=== PATIENT | male | born 1945 | race Hispanic/Latino ===

== ENCOUNTER 2017-05-17 14:19 | Observation (INO) | payer BC ==
[2017-05-17] MEDS ORDERED: Glucagon Recombinant 1 mg Inj SC STA (15:24)
[2017-05-17] MEDS ORDERED: Sodium Chloride 0.9% 1,000 ML IV ONE (15:25)
[2017-05-17] MEDS ORDERED: Sodium Chloride 0.9% 1,000 ML ONE ×2 (15:30→15:44)
[2017-05-17] MEDS ORDERED: Glucagon Recombinant 1 mg Inj ONE (15:43)
[2017-05-17 15:45] LABS: BASO # 0.1 K/uL (0.0-0.2); BASO % 0.3 % (0.0-2.0); HEMATOCRIT 44.8 % (35.0-51.0); LYMPH % 4.4 % (20.0-40.0); MEAN CELL VOLUME 86.1 fL (80.0-94.0); MEAN CORPUSCULAR HEMOGLOBIN 28.2 pg (27.0-31.0); MEAN CORPUSCULAR HGB CONC 32.8 g/dL (33.0-37.0); MEAN PLATELET VOLUME 8.2 fL (7.2-11.7); MONO # 1.3 K/uL (0.0-0.8); MONO % 5.6 % (0.0-10.0); PLATELET COUNT 316 K/uL (130-400); RED CELL DISTRIBUTION WIDTH 13.9 % (11.5-14.5); WHITE BLOOD COUNT 22.7 K/uL (4.8-10.8)
[2017-05-17 15:54] LABS: CHLORIDE 104 mmol/L (98-107); SODIUM 140 mmol/L (132-148)
[2017-05-17 15:55] LABS: POTASSIUM 4.6 mmol/L (3.6-5.2)
[2017-05-17 15:56] LABS: BILIRUBIN,TOTAL 1.2 mg/dL (0.2-1.3); GFR AFRICAN-AMERICAN > 60
[2017-05-17 15:57] LABS: ALB/GLOB RATIO 1.6 (1.0-2.1); ALKALINE PHOSPHATASE 55 U/L (38-126); ALT/SGPT 37 U/L (21-72); AST/SGOT 35 U/L (17-59); BLOOD UREA NITROGEN 28 mg/dL (9-20); CALCIUM 9.3 mg/dl (8.6-10.4); CARBON DIOXIDE 19 mmol/L (22-30); GLUCOSE,RANDOM 245 mg/dL (75-110); TOTAL PROTEIN 8.9 g/dL (6.3-8.3)
[2017-05-17 16:00] LABS: INR 1.2
--- NOTE | 2017-05-17 16:32 | RAD ---
PROCEDURE: CHEST RADIOGRAPH, 1 VIEW HISTORY: SOB COMPARISON: 10/15/2016 FINDINGS: LUNGS: Abnormal opacity at right lung base. This is noted on earlier examination of 10/15/2016 though the morphology is not identical. Cannot rule out infiltrate. This may also represent pleural plaque or subsegmental atelectasis. PLEURA: No pneumothorax or pleural fluid seen. CARDIOVASCULAR: Normal. OSSEOUS STRUCTURES: No significant abnormalities. VISUALIZED UPPER ABDOMEN: Normal. OTHER FINDINGS: None. IMPRESSION: Opacity at right lung base common nonspecific. Cannot rule out pneumonia. Followup advised.
[2017-05-17] MEDS ORDERED: Iodixanol 320 MG/ML 200 ML BOTTLE IV ONE (17:18)
--- NOTE | 2017-05-17 17:31 | C.PDOC ---
History Of Present Illness 71y/o male presents to the ED for evaluation of epigastric discomfort after he swallowed a piece of chicken cutlet around 3 days ago. Patient has been unable to pass foods or fluids since the incident. Patient reports frequent episodes of vomiting with any liquids. Patient denies shortness of breath, chest pain. Time Seen by Provider: 05/17/17 15:21 Chief Complaint (Nursing): Foreign Body History Per: Patient History/Exam Limitations: no limitations Onset/Duration Of Symptoms: Days (3) Current Symptoms Are (Timing): Still Present Additional History Per: Patient Past Medical History Reviewed: Historical Data, Nursing Documentation, Vital Signs Vital Signs: Last Vital Signs Temp 97.7 F 05/17/17 14:32 Pulse 123 H 05/17/17 14:32 Resp 20 05/17/17 14:32 BP 143/86 05/17/17 14:32 Pulse Ox 94 L 05/17/17 18:32 - Medical History PMH: No Chronic Diseases Surgical History: No Surg Hx Family History: States: Unknown Family Hx - Social History Hx Alcohol Use: No Hx Substance Use: No - Immunization History Hx Tetanus Toxoid Vaccination: No Hx Influenza Vaccination: No Hx Pneumococcal Vaccination: No Review Of Systems Except As Marked, All Systems Reviewed And Found Negative. Cardiovascular: Negative for: Chest Pain Respiratory: Negative for: Shortness of Breath Gastrointestinal: Positive for: Vomiting, Abdominal Pain (epigastric ) Physical Exam - Physical Exam Appears: Non-toxic, No Acute Distress, Other (elderly male ) Skin: Normal Color, Warm, Dry Head: Atraumatic Eye(s): bilateral: Normal Inspection Oral Mucosa: Moist Throat: Other (+moist oropharynx) Neck: Normal ROM, Supple Chest: Symmetrical, No Deformity, No Tenderness Cardiovascular: Rhythm Regular, No Murmur Respiratory: Normal Breath Sounds, No Rales, No Rhonchi, No Wheezing Gastrointestinal/Abdominal: Soft, No Tenderness, No Guarding, No Rebound Back: Normal Inspection, No Vertebral Tenderness, No Paraspinal Tenderness Extremity: Normal ROM, Capillary Refill (less than 2 seconds ) Neurological/Psych: Oriented x3, Normal Speech, Normal Cognition Gait: Steady ED Course And Treatment - Laboratory Results Result Diagrams: 05/17/17 15:42 05/17/17 15:42 Lab Interpretation: Abnormal (+ leukocytosis, ? related to vomiting x 2 days, trop neg.) ECG: Interpreted By Me ECG Rhythm: Sinus Rhythm ECG Interpretation: Normal Interpretation Of ECG: Normal Sinus Rhythm of rate 82bpm. Rate From EC O2 Sat by Pulse Oximetry: 94 Pulse Ox Interpretation: Normal - Radiology CXR: Interpreted by Me CXR Interpretation: Yes: No Acute Disease, Other (chronic RLL changes) - CT Scan/US CT chest Other Rad Studies (CT/US): Interpreted By Me, Read By Radiologist, Radiology Report Reviewed CT/US Interpretation: IMPRESSION: 1. Fluid and debris distended esophagus. The appearance favors a distal food. impaction. Images of the gastroesophageal junction are degraded by artifact. . 2. Hepatic steatosis. . 3. Coarse linear densities at the right lung base suggest subsegmental. atelectasis. Possible mucus impacted distal bronchus. Images were attached to this report and are available at [email or web address] Progress Note: IVF's, glucogon without improvement. Reevaluation Time: 17:31 Reassessment Condition: Improved - Physician Consult Information Outcome Of Conversation: d/w Dr. Gabriela [facility]WL[facility] [employer]- in ED @ 1700, plan for upper endoscopy in AM. 1730: d/w Dr. Avinash [facility]WL[facility] [employer]- ok to Med Surg Medical Decision Making Medical Decision Making: impacted food bulus distal esophagus x 2-3 days. unimproved w glucagon IM/SQ NPO, Gentle hydration and glu control overnight, plan for upper endoscopy in AM Leukocytosis may be related to recent vomiting, otherwise no obvious source, defer abx Disposition Doctor Will See Patient In The: Hospital Counseled Patient/Family Regarding: Studies Performed, Diagnosis - Disposition Disposition: HOSPITALIZED Disposition Time: 17:33 Condition: GOOD - Clinical Impression Clinical Impression: Food impaction of esophagus - Scribe Statement The provider has reviewed the documentation as recorded by the Scribe (Kiya Bueno) Provider Attestation: All medical record entries made by the Scribe were at my direction and personally dictated by me. I have reviewed the chart and agree that the record accurately reflects my personal performance of the history, physical exam, medical decision making, and the department course for this patient. I have also personally directed, reviewed, and agree with the discharge instructions and disposition.
--- NOTE | 2017-05-17 17:58 | CT ---
EXAM: CT Chest With Intravenous Contrast CLINICAL HISTORY: 71 years old, male; Signs and symptoms; Mass, lump, or swelling in the chest; Additional info: ? Food impact vs distal esophageal mass TECHNIQUE: Axial computed tomography images of the chest with intravenous contrast. This CT exam was performed using one or more of the following dose reduction techniques: automated exposure control, adjustment of the mA and/or kV according to patient size, and/or use of iterative reconstruction technique. Coronal and sagittal reformatted images were created and reviewed. CONTRAST: 100 mL of visipaque administered intravenously. EXAM DATE/TIME: Exam ordered 05/17/2017 3:36 PM COMPARISON: No relevant prior studies available. FINDINGS: Lungs: Patchy linear opacities are noted in the posterior basal and lateral basal segments of the right lower lobe. Low density noted within the opacity suggests mucoid impaction within a distended bronchus Pleural space: Unremarkable. No pneumothorax. No significant effusion. Heart: Unremarkable. No cardiomegaly. No significant pericardial effusion. Mediastinum: The esophagus is distended with fluid and debris throughout its length. Beam hardening artifact is noted at the gastroesophageal junction which degrades images of this level. The tiny pockets of gas noted, however, with in the distended distal esophagus at the gastroesophageal junction favor a food impaction. Bones/joints: Unremarkable. No acute fracture. No dislocation. Soft tissues: Unremarkable. Vasculature: Unremarkable. No thoracic aortic aneurysm. Lymph nodes: Unremarkable. No enlarged lymph nodes. Liver:The liver is heterogeneous in density which suggest the possibility of underlying fatty infiltration. IMPRESSION: 1. Fluid and debris distended esophagus. The appearance favors a distal food impaction. Images of the gastroesophageal junction are degraded by artifact 2. Hepatic steatosis. 3. Coarse linear densities at the right lung base suggest subsegmental atelectasis. Possible mucus impacted distal bronchus Images were attached to this report and are available at [email or web address]
--- NOTE | 2017-05-17 19:29 | CP.PCM.CON ---
History of Present Illness - History of Present Illness History of Present Illness: CC: Esophageal food impaction HPI: Patient presents to ER with inability to eat solids or liquids since 4 days ago when he ate a chicken cutlet and felt it stuck in his chest. Since then he has dysphagia and vomits up solids or liquid foods. He has not eaten solids x 2 days, but did have coffee with milk while in the ER about 30 minutes ago, and he vomited it up. CT shows distal esophageal food impaction and esophagus contains fluid and debris. He is comfortable, and is easily breathing and swallowing his saliva. Patient has had prior episodes of dysphagia to solids , but they all spontaneously resolved within several hours. Patient reports having EGD twice in the past but does not know the findings. I discussed with the ER attending. Review of Systems - Constitutional Constitutional: absent: Chills, Fever - EENT Eyes: absent: Change in Vision Nose/Mouth/Throat: absent: Sore Throat, Neck Mass - Cardiovascular Cardiovascular: absent: Chest Pain, Dyspnea - Respiratory Respiratory: absent: Cough - Gastrointestinal Gastrointestinal: Dysphagia, Vomiting. absent: Abdominal Pain, Coffee Ground Emesis, Constipation, Hematemesis, Melena, Nausea - Genitourinary Genitourinary: absent: Difficulty Urinating - Musculoskeletal Musculoskeletal: absent: Back Pain - Integumentary Integumentary: absent: Jaundice - Neurological Neurological: absent: Behavioral Changes - Psychiatric Psychiatric: absent: Confusion - Endocrine Endocrine: absent: Palpitations Past Patient History - Past Social History Smoking Status: Former Smoker Alcohol: None - ENDOCRINE/METABOLIC Hx Diabetes Mellitus Type 2: Yes - PSYCHIATRIC Hx Substance Use: No Meds Allergies/Adverse Reactions: Allergies Allergy/AdvReac Type Severity Reaction Status Date / Time No Known Allergies Allergy Verified 05/17/17 14:38 Physical Exam - Constitutional Appears: Well, Non-toxic, No Acute Distress - Head Exam Head Exam: ATRAUMATIC, NORMOCEPHALIC - Eye Exam Eye Exam: Normal appearance. absent: Scleral icterus - ENT Exam ENT Exam: Normal Exam - Neck Exam Neck exam: Positive for: Normal Inspection - Respiratory Exam Respiratory Exam: Clear to Auscultation Bilateral, NORMAL BREATHING PATTERN - Cardiovascular Exam Cardiovascular Exam: REGULAR RHYTHM - GI/Abdominal Exam GI & Abdominal Exam: Soft. absent: Mass, Organomegaly, Tenderness - Extremities Exam Extremities exam: Positive for: normal inspection - Back Exam Back exam: NORMAL INSPECTION - Neurological Exam Neurological exam: Alert, Oriented x3 - Psychiatric Exam Psychiatric exam: Normal Affect Results - Vital Signs Recent Vital Signs: Last Vital Signs Temp 97.7 F 05/17/17 18:42 Pulse 80 05/17/17 18:42 Resp 18 05/17/17 18:42 BP 129/76 05/17/17 18:42 Pulse Ox 96 05/17/17 18:42 - Labs Result Diagrams: 05/17/17 15:42 05/17/17 15:42 Assessment & Plan (1) Food impaction of esophagus Assessment and Plan: Well tolerated x several days. R/O Schatzki Ring or esophageal stricture as underlying cause. Eosinophilic esophagitis possible but less likely. Rec: Needs EGD with food disempaction. Unfortunately patient recently ingested milk, so it can not be done immediately. Patient is comfortable and the impaction is well tolerated. Recommend admission, NPO, EGD in the morning. Status: Acute - Date & Time Date: 05/17/17 Time: 17:10
[2017-05-17] MEDS: Dextrose 5%/0.45% NS 1,000 ML IV SCH (20:10)
--- NOTE | 2017-05-17 22:06 | CP.PCM.PN ---
Subjective - Date & Time of Evaluation Date of Evaluation: 05/17/17 Time of Evaluation: 09:45 - Subjective Subjective: H&P dictated #[id number] Objective - Vital Signs/Intake and Output Vital Signs (last 24 hours): Temp Pulse Resp BP Pulse Ox 97.7 F 80 18 129/76 96 05/17/17 18:42 05/17/17 18:42 05/17/17 18:42 05/17/17 18:42 05/17/17 18:42 - Medications Medications: Current Medications Dextrose/Sodium Chloride (Dextrose 5%/0.45% Ns 1000 Ml) 1,000 mls @ 75 mls/hr IV .[id number] Last Admin: 05/17/17 20:10 Dose: 75 mls/hr Pneumococcal Polyvalent Vaccine (Pneumovax 23 Vaccine) 0.5 ml IM .ONCE ONE Stop: 05/19/17 10:01 - Labs Labs: PT 13.2 SECONDS (9.7-12.2) H 05/17/17 15:42 INR 1.2 05/17/17 15:42 APTT 27 SECONDS (21-34) 05/17/17 15:42
[2017-05-17 22:17] LABS: LARGE PLATELETS PRESENT; SMUDGE CELLS PRESENT; TOTAL CELLS COUNTED 100
[2017-05-17 22:41] LABS: NEUTROPHIL 73 % (50-75); REACTIVE LYMPHOCYTES 3 % (0-0)
[2017-05-17] MEDS: metroNIDAZOLE IV 500 mg/100 ml 500 MG/100 ML BAG IVPB SCH (23:10)
--- NOTE | 2017-05-18 02:45 | HP ---
CHIEF COMPLAINT: Difficulty swallowing for the past 3 days after he ate chicken about 3 days ago. HISTORY OF PRESENT ILLNESS: The patient is a 71-year-old male with past medical history of diabetes mellitus, on medication, who has been following up with doctors from . Came into the Emergency Room with epigastric discomfort and unable to swallow the liquids and solids for the past 3 days afte r he ate a piece of chicken. Of the history obtained from the patient, as per the patient, he has be en in his usual state of health until 3 days ago. He accidentally swallowed a chicken piece. Since then, he felt like something is stuck in the throat, unable to cough it up after multiple attempts. He felt it was going down and, at one point, it was hurting hard swallowing and unable to eat or drin k anything. Also, claiming that he is not able to even swallow the saliva, for which he came into [facility] ED. In the ED, the patient was found to be having impacted food bolus and patient is being admitte d for further management. When I examine the patient, he denies any headache, dizziness. Denies any shortness of breath or whe ezing. Denies any nausea or vomiting, denies any diarrhea or constipation, but complaining of epigas tric and retrosternal discomfort and pain. Denies any urinary complaints. Denies any leg pains or l eg cramps. Denies any other neurologic symptoms. All other systems reviewed and were found to be ne gative. PAST MEDICAL HISTORY: Diabetes mellitus. PAST SURGICAL HISTORY: He underwent appendectomy many years ago and cyst removal. FAMILY HISTORY: Diabetes mellitus in many family members. PERSONAL HISTORY: He is single, having no children. He lives with his sister. 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 SOCIAL HISTORY: He is an ex-smoker, quit smoking about 8 months ago, smoked 1 pack per day for years . Drinks alcohol socially. Denies any other drug abuse. ALLERGIES: No known drug allergies. REVIEW OF SYSTEMS: As described in history of present illness. All other systems reviewed and were found to be negative. PHYSICAL EXAMINATION: GENERAL: Elderly male lying in bed in no acute distress. VITAL SIGNS: Blood pressure 142/86, pulse 80, respiration 18, temperature 97.1 degrees Fahrenheit, O 2 sat is 96% on 2 liters nasal cannula. HEENT: Pupils equal, round, reacting to light and accommodation. Extraocular muscles intact. No ic terus. No pallor. No oral thrush. No pharyngeal congestion. NECK: Supple. No JVD. CHEST: Bilateral vesicular breath sounds. Bilateral wheezing, no rhonchi heard. CARDIOVASCULAR: S1, S2 present. Regular. ABDOMEN: Soft, nontender. Bowel sounds present. No guarding, no rigidity, no rebound tenderness no buck. CENTRAL NERVOUS SYSTEM: Alert, awake, oriented x 3. No focal deficits noted. EXTREMITIES: No edema. Palpable peripheral pulses. LABORATORY DATA: Labs done from the Emergency Room, WBC 22.7, hemoglobin 14.7, hematocrit 44.8, plat elets 316, bands 8. PT 13.2, INR 1.2, PTT 27. Sodium 140, potassium 4.6, chloride 104, bicarbonate 19, BUN 28, creatinine 1.1, glucose 205, calcium 9.3, total bilirubin 1.2, AST 35, ALT 37, alkaline p hosphatase 55. Cardiac enzymes x 1 negative. Total protein 8.9, albumin 5.4. Chest x-ray opacity a t the right lung base, nonspecific and not to rule out pneumonia. CT of the chest consistent with po or fluid and debris, distended esophagus, , food impaction, hepatic steatosis. Coarse de nsities at the right lung base suggesting subsegmental atelectasis and possible mucus impacted distal bronchus. ASSESSMENT AND PLAN: Elderly male with history of diabetes mellitus admitted for epigastric and ret rosternal discomfort after swallowing a piece of chicken followed by inability to swallow liquids or solids for the past [address] consistent with impacted food bolus in the distal esophagus and the p atient is being admitted for further management. 1. Impacted food bolus in the distal esophagus, rule out esophageal stricture versus Schatzki sprain . 2. Elevated WBC with mild bandemia, rule out secondary to aspiration, rule out secondary to stress, dehydration. 3. Diabetes mellitus. PLAN: The patient is being admitted to the floor. The patient is kept n.p.o., will give IV fluids o f D5 half normal saline at 75 mL an hour. The patient is scheduled for possible EGD in the a.m. The patient was evaluated by GI. Will repeat labs in the morning. We will give Rocephin 1 gram IV and Flagyl 500 mg IV pending blood culture results empirically for possible aspiration will give DuJennyb w ill repeat labs in the morning. We will check hemoglobin A1c. Advised patient to bring the patient' s medication list. I will restart the patient on his home medication. We will add further recommend ation as his clinical course progresses Reilly Reyes MD cc: [id number] TT: 05/18/2017 02:45:11 mn
[2017-05-18] MEDS: metroNIDAZOLE IV 500 mg/100 ml 500 MG/100 ML BAG IVPB SCH ×3 (06:31→21:37)
[2017-05-18 06:34] LABS: BASO # 0.1 K/uL (0.0-0.2); BASO % 0.8 % (0.0-2.0); EOS % 0.1 % (0.0-4.0); HEMATOCRIT 38.7 % (35.0-51.0); LYMPH # 1.7 K/uL (1.0-4.3); LYMPH % 9.9 % (20.0-40.0); MEAN CELL VOLUME 85.5 fL (80.0-94.0); MEAN CORPUSCULAR HEMOGLOBIN 28.7 pg (27.0-31.0); MEAN CORPUSCULAR HGB CONC 33.6 g/dL (33.0-37.0); MONO # 1.4 K/uL (0.0-0.8); PLATELET COUNT 255 K/uL (130-400); RED CELL DISTRIBUTION WIDTH 13.5 % (11.5-14.5); WHITE BLOOD COUNT 17.2 K/uL (4.8-10.8)
[2017-05-18 06:35] LABS: INR 1.3
[2017-05-18 06:47] LABS: CHLORIDE 109 mmol/L (98-107); SODIUM 143 mmol/L (132-148)
[2017-05-18 06:49] LABS: AST/SGOT 30 U/L (17-59); BILIRUBIN,TOTAL 0.9 mg/dL (0.2-1.3); CARBON DIOXIDE 23 mmol/L (22-30); CHOLESTEROL 147 mg/dL (0-199); GFR AFRICAN-AMERICAN > 60
[2017-05-18 06:50] LABS: ALB/GLOB RATIO 1.2 (1.0-2.1); ALKALINE PHOSPHATASE 57 U/L (38-126); ALT/SGPT 25 U/L (21-72); BLOOD UREA NITROGEN 24 mg/dL (9-20); CALCIUM 8.9 mg/dl (8.6-10.4); GLUCOSE,RANDOM 149 mg/dL (75-110); TOTAL PROTEIN 7.3 g/dL (6.3-8.3)
[2017-05-18] MEDS: Albuterol-Ipratrop 3 mg / 0.5 (3 ml) UD INH SCH ×3 (07:19→19:31)
[2017-05-18] MEDS ORDERED: Lactated Ringer's 1,000 ML IV ONE (07:37)
[2017-05-18] MEDS ORDERED: Dextrose 5%/0.45% NS 500 ML IV ONE (07:37)
[2017-05-18 09:29] LABS: NEUTROPHIL 80 % (50-75); TOTAL CELLS COUNTED 100
[2017-05-18] MEDS: Dextrose 5%/0.45% NS 1,000 ML IV SCH ×3 (09:48→21:41)
[2017-05-18] MEDS: Enoxaparin 40 mg Syringe SC SCH (10:42)
--- NOTE | 2017-05-18 11:20 | CP.PCM.PN ---
Subjective - Date & Time of Evaluation Date of Evaluation: 05/18/17 Time of Evaluation: 11:15 - Subjective Subjective: Progress note dictated #[id number] Objective - Vital Signs/Intake and Output Vital Signs (last 24 hours): Temp Pulse Resp BP Pulse Ox 98.1 F 80 22 129/64 100 05/18/17 07:55 05/18/17 08:25 05/18/17 08:25 05/18/17 08:25 05/18/17 08:25 Intake and Output: 05/18/17 05/18/17 06:59 18:59 Intake Total 900 Output Total 550 Balance 350 - Medications Medications: Current Medications Albuterol/Ipratropium (Duoneb 3 Mg/0.5 Mg (3 Ml) Ud) 3 ml INH RQ6 [facility] Last Admin: 05/18/17 07:19 Dose: Not Given Enoxaparin Sodium (Lovenox) 40 mg SC DAILY [facility] Last Admin: 05/18/17 10:42 Dose: 40 mg Dextrose/Sodium Chloride (Dextrose 5%/0.45% Ns 1000 Ml) 1,000 mls @ 75 mls/hr IV .[id number] [facility] Last Admin: 05/18/17 09:48 Dose: Not Given Metronidazole (Flagyl) 500 mg in 100 mls @ 100 mls/hr IVPB Q8 [facility] Last Admin: 05/18/17 06:31 Dose: 100 mls/hr Pantoprazole Sodium (Protonix Inj) 40 mg IVP Q12H [facility] Last Admin: 05/18/17 09:48 Dose: Not Given Pneumococcal Polyvalent Vaccine (Pneumovax 23 Vaccine) 0.5 ml IM .ONCE ONE Stop: 05/19/17 10:01 - Labs Labs: 05/18/17 06:15 05/18/17 06:15 PT 14.5 SECONDS (9.7-12.2) H 05/18/17 06:15 INR 1.3 05/18/17 06:15 APTT 27 SECONDS (21-34) 05/17/17 15:42
--- NOTE | 2017-05-18 16:25 | PN ---
DATE: 05/18/2017 The patient is seen and examined at bedside this morning. The patient underwent EGD, status post rem oval of food bolus. The patient is feeling much better. Denies any headache, dizziness. Denies any chest pain, shortness of breath or wheezing. Denies any epigastric discomfort. REVIEW OF SYSTEMS: All other systems reviewed and were found to be negative. PHYSICAL EXAMINATION: GENERAL: Elderly male lying in bed in no acute distress. VITAL SIGNS: Blood pressure 129/64, pulse 80, respirations 20, temperature 98.1 degrees Fahrenheit, O2 sat 100% on 2 liters nasal cannula. HEENT: Pupils equal, round, reacting to light and accommodation. Extraocular muscles intact. No ic terus, no pallor. No oral thrush. No pharyngeal congestion. No nasal congestion. NECK: Supple. No JVD. LUNGS: Bilateral vesicular breath sounds. No wheezing, no rhonchi. CARDIOVASCULAR: S1, S2 present, regular. ABDOMEN: Soft, nontender. Bowel sounds present. No guarding, no rigidity, no rebound tenderness no buck. CENTRAL NERVOUS SYSTEM: Alert, awake, oriented x 3. No focal deficits noted. EXTREMITIES: No edema. Palpable peripheral pulses. LABORATORY DATA: Done from this morning, WBC 17.2, hemoglobin 13.0, hematocrit 38.7, platelets 255. Sodium 143, potassium 4.0, chloride 109, bicarb 23, BUN 24, creatinine 0.8, glucose 193, hemoglobin A1c 6.5, calcium 8.9, total bili 0.9, AST 30, ALT 25, alkaline phosphatase 57, total protein 7.3, alb umin 4.0, triglycerides 64, cholesterol 147, LDL 81, HDL 41. ASSESSMENT AND PLAN: Elderly male with history of diabetes mellitus, admitted for impacted food bolu s in the distal esophagus, elevated WBC count, status post EGD. The patient tolerated the procedure. His white count is improving on empiric antibiotics. Blood culture results so far unavailable. We will continue with Rocephin 1 gram daily and Flagyl 500 mg intravenous daily. Continue with intrave nous fluids, Protonix 40 mg intravenous q.12 hours. We will repeat CBC in the morning. If patient t olerates p.o. and cleared by gastrointestinal, we will plan discharging the patient home. Reilly Reyes MD cc: [id number] TT: 05/18/2017 16:25:10 Confirmation # [id number] Dictation # [id number]
[2017-05-18 17:15] VITALS: RESP 20
[2017-05-19] MEDS: Albuterol-Ipratrop 3 mg / 0.5 (3 ml) UD INH SCH ×3 (02:11→13:40)
[2017-05-19] MEDS: metroNIDAZOLE IV 500 mg/100 ml 500 MG/100 ML BAG IVPB SCH ×2 (05:40→14:19)
[2017-05-19] MEDS: Dextrose 5%/0.45% NS 1,000 ML IV SCH ×2 (05:46→12:35)
[2017-05-19 07:37] LABS: HEMATOCRIT 34.7 % (35.0-51.0); MEAN CELL VOLUME 85.6 fL (80.0-94.0); MEAN CORPUSCULAR HGB CONC 33.8 g/dL (33.0-37.0); MEAN PLATELET VOLUME 7.9 fL (7.2-11.7); RED CELL DISTRIBUTION WIDTH 13.7 % (11.5-14.5); WHITE BLOOD COUNT 9.1 K/uL (4.8-10.8)
--- NOTE | 2017-05-19 08:11 | CP.PCM.PN ---
Subjective - Date & Time of Evaluation Date of Evaluation: 05/19/17 Time of Evaluation: 08:09 - Subjective Subjective: CC: Follow up food impaction Feels well Denies fevers, chest pain. Tolerating clear liquids. + residual cough Objective - Vital Signs/Intake and Output Vital Signs (last 24 hours): Temp Pulse Resp BP Pulse Ox 99.2 F 79 20 116/66 98 05/18/17 23:53 05/18/17 23:53 05/18/17 23:53 05/18/17 23:53 05/18/17 23:53 Intake and Output: 05/19/17 05/19/17 06:59 18:59 Intake Total 700 Output Total 400 Balance 300 - Medications Medications: Current Medications Albuterol/Ipratropium (Duoneb 3 Mg/0.5 Mg (3 Ml) Ud) 3 ml INH RQ6 [facility] Last Admin: 05/19/17 02:11 Dose: Not Given Enoxaparin Sodium (Lovenox) 40 mg SC DAILY [facility] Last Admin: 05/18/17 10:42 Dose: 40 mg Dextrose/Sodium Chloride (Dextrose 5%/0.45% Ns 1000 Ml) 1,000 mls @ 75 mls/hr IV .[id number] [facility] Last Admin: 05/19/17 05:46 Dose: 75 mls/hr Metronidazole (Flagyl) 500 mg in 100 mls @ 100 mls/hr IVPB Q8 [facility] Last Admin: 05/19/17 05:40 Dose: 100 mls/hr Ceftriaxone Sodium 1 gm/ (Sodium Chloride) 100 mls @ 200 mls/hr IVPB Q24H [facility] Last Admin: 05/18/17 14:00 Dose: 200 mls/hr Pantoprazole Sodium (Protonix Inj) 40 mg IVP Q12H [facility] Last Admin: 05/18/17 21:37 Dose: 40 mg Pneumococcal Polyvalent Vaccine (Pneumovax 23 Vaccine) 0.5 ml IM .ONCE ONE Stop: 05/19/17 10:01 - Labs Labs: 05/19/17 07:28 05/18/17 06:15 PT 14.5 SECONDS (9.7-12.2) H 05/18/17 06:15 INR 1.3 05/18/17 06:15 APTT 27 SECONDS (21-34) 05/17/17 15:42 - Constitutional Appears: Well, No Acute Distress - Head Exam Head Exam: NORMOCEPHALIC - Eye Exam Eye Exam: absent: Scleral icterus - Neck Exam Neck Exam: Normal Inspection - Respiratory Exam Respiratory Exam: Clear to Ausculation Bilateral - Cardiovascular Exam Cardiovascular Exam: REGULAR RHYTHM - GI/Abdominal Exam GI & Abdominal Exam: Soft. absent: Tenderness, Mass, Organomegaly Assessment and Plan (1) Food impaction of esophagus Assessment & Plan: Endoscopically removed. Doing well. Rec: Advance diet. Protonix. Outpatient follow up. Contact information given to patient to follow up in office. GI stable for discharge. Status: Acute
[2017-05-19] MEDS ORDERED: Pneumococcal 23-Valent Vaccine IM ONE (10:00)
[2017-05-19 10:18] LABS: CHLORIDE 105 mmol/L (98-107); POTASSIUM 3.6 mmol/L (3.6-5.2); SODIUM 140 mmol/L (132-148)
[2017-05-19 10:20] LABS: GFR AFRICAN-AMERICAN > 60
[2017-05-19 10:21] LABS: ALKALINE PHOSPHATASE 44 U/L (38-126); ALT/SGPT 28 U/L (21-72); AST/SGOT 21 U/L (17-59); BILIRUBIN,TOTAL 0.7 mg/dL (0.2-1.3); BLOOD UREA NITROGEN 11 mg/dL (9-20); CARBON DIOXIDE 24 mmol/L (22-30); GLUCOSE,RANDOM 104 mg/dL (75-110); TOTAL PROTEIN 6.3 g/dL (6.3-8.3)
[2017-05-19 10:22] LABS: CALCIUM 8.3 mg/dl (8.6-10.4)
[2017-05-19] MEDS: Enoxaparin 40 mg Syringe SC SCH (10:37)
--- NOTE | 2017-05-19 12:11 | CP.PCM.PN ---
Subjective - Date & Time of Evaluation Date of Evaluation: 05/19/17 Time of Evaluation: 12:15 - Subjective Subjective: Discharge summary dictated #[id number] Objective - Vital Signs/Intake and Output Vital Signs (last 24 hours): Temp Pulse Resp BP Pulse Ox 97.9 F 83 20 134/72 93 L 05/19/17 08:09 05/19/17 08:09 05/19/17 08:09 05/19/17 08:09 05/19/17 08:09 Intake and Output: 05/19/17 05/19/17 06:59 18:59 Intake Total 700 Output Total 400 Balance 300 - Medications Medications: Current Medications Albuterol/Ipratropium (Duoneb 3 Mg/0.5 Mg (3 Ml) Ud) 3 ml INH RQ6 [facility]GG Last Admin: 05/19/17 08:10 Dose: 3 ml Enoxaparin Sodium (Lovenox) 40 mg SC DAILY [facility] Last Admin: 05/19/17 10:37 Dose: 40 mg Dextrose/Sodium Chloride (Dextrose 5%/0.45% Ns 1000 Ml) 1,000 mls @ 75 mls/hr IV .[id number] [facility] Last Admin: 05/19/17 05:46 Dose: 75 mls/hr Metronidazole (Flagyl) 500 mg in 100 mls @ 100 mls/hr IVPB Q8 [facility] Last Admin: 05/19/17 05:40 Dose: 100 mls/hr Ceftriaxone Sodium 1 gm/ (Sodium Chloride) 100 mls @ 200 mls/hr IVPB Q24H [facility] Last Admin: 05/19/17 10:38 Dose: 200 mls/hr Pantoprazole Sodium (Protonix Inj) 40 mg IVP Q12H [facility] Last Admin: 05/19/17 10:38 Dose: 40 mg - Labs Labs: 05/19/17 07:28 05/19/17 09:53 PT 14.5 SECONDS (9.7-12.2) H 05/18/17 06:15 INR 1.3 05/18/17 06:15 APTT 27 SECONDS (21-34) 05/17/17 15:42
[2017-05-19 14:39] LABS: BASO % 0.5 % (0.0-2.0); EOS # 0.1 K/uL (0.0-0.7); EOS % 1.2 % (0.0-4.0); HEMATOCRIT 34.2 % (35.0-51.0); LYMPH # 1.9 K/uL (1.0-4.3); MEAN CELL VOLUME 86.1 fL (80.0-94.0); MEAN CORPUSCULAR HEMOGLOBIN 29.6 pg (27.0-31.0); MEAN CORPUSCULAR HGB CONC 34.4 g/dL (33.0-37.0); MONO # 0.7 K/uL (0.0-0.8); MONO % 9.1 % (0.0-10.0); RED CELL DISTRIBUTION WIDTH 13.9 % (11.5-14.5); WHITE BLOOD COUNT 8.1 K/uL (4.8-10.8)
[2017-05-19 17:28] VITALS: BP 118/70; PULSE 87; TEMP 98.3; O2SAT 97
--- NOTE | 2017-05-19 18:07 | DS ---
DISCHARGE DIAGNOSES: Impacted food bolus in the distal esophagus, cough, right lung atelectasis vers us infiltrate, elevated WBC count, diabetes mellitus. HISTORY OF PRESENT ILLNESS: The patient is a 71-year-old male with history of diabetes mellitus who has been following up with the doctors from [place], came into the Emergency Room with epigastric di scomfort and unable to swallow liquids and solids 3 days prior to admission after he ate a piece of c hicken. In the ED, he was found to be having a food bolus stuck in the distal esophagus and patient is being admitted for further management. Today, the patient is feeling much better. Denies any hea dache, dizziness. Denies any chest pain, shortness of breath or wheezing. Denies any nausea, vomiti ng, abdominal pain, diarrhea or constipation, but complaining of intermittent cough. Denies any urin primitivo complaints. Denies any leg pains or leg cramps. Denies any other neurologic symptoms. Has been tolerating p.o. fairly well. All other systems reviewed and were found to be negative. PHYSICAL EXAMINATION: GENERAL: Elderly male lying in bed in no acute distress. VITAL SIGNS: Blood pressure 134/72, pulse 83, respiration 20, temperature 97.9 degrees Fahrenheit, O 2 sats 98% on room air. HEENT: Pupils equal, round, reacting to light and accommodation. Extraocular muscles intact. No ic terus, no pallor. No oral thrush. No pharyngeal congestion. No nasal congestion. NECK: Supple. No JVD, no thyromegaly. CHEST: Moving equally bilaterally on respiration. LUNGS: Bilateral vesicular breath sounds. No wheezing, no rhonchi. CARDIOVASCULAR: S1, S2 present, regular. ABDOMEN: Soft, nontender. Bowel sounds present. No guarding, no rigidity, no rebound tenderness no buck. CENTRAL NERVOUS SYSTEM: Alert, awake, oriented x 3. No focal deficits noted. EXTREMITIES: No edema. Palpable peripheral pulses. LABORATORY DATA: Done from this morning, WBC 9.1, hemoglobin 11.7. Repeat hemoglobin 11.8, hematocr it 34.7 and 34.2, platelets 2.6, sodium 140, potassium 3.6, chloride 105, bicarbonate 24, BUN 11, cre atinine 0.9, glucose 191, calcium 8.3, total bilirubin 0.7, AST 21, ALT 28, alkaline phosphatase 44, total protein 6.3, albumin 3.1. IMAGING: CT of the chest shows fluid in esophagus, the appearance favors distal food impaction , hepatic steatosis, coarse linear densities in the right lung base suggestive of subsegmental atelec tasis. HOSPITAL COURSE: The patient was admitted to the hospital, kept n.p.o. The patient was started on IV fluids. The patient was evaluated by GI, underwent EGD and disimpaction of the food bolus. The renetta mitchell tolerated p.o. liquid diet and diet was advanced this morning, which he tolerated. He has been complaining of intermittent cough, otherwise doing well. On admission, his white count was elevated at 22,000, for which patient was started empirically on antibiotics for possible aspiration. The renetta mitchell's WBC count improved. As the patient is otherwise doing well and cleared by GI, the patient rem ains afebrile so the patient is being discharged. I advised the patient to follow up with GI in 2 we eks. The patient was given instructions to follow up with GI and his PMD. Advised to return to the ED if any recurrent symptoms occur. CONDITION UPON DISCHARGE: The patient is alert, awake, oriented x 3 and hemodynamically stable. DISCHARGE INSTRUCTIONS: Follow up with PMD, follow up with GI. DISCHARGE MEDICATIONS: Include Protonix 40 mg daily, Augmentin 875 mg p.o. b.i.d. for 5 days, 1 cap p.o. b.i.d. for 5 days. Advised to continue with his home diabetic medications, which he could not recall. DISCHARGE DIET: An 1800 calorie ADA diet. ACTIVITY: As tolerated. Reilly Reyes MD cc: [id number] TT: 05/19/2017 18:07:05 gordon
--- NOTE | 2017-05-20 00:28 | CARD ---
APPROVED REPORT EKG Measurement Heart [id number] <Conclusion> Normal sinus rhythm Left axis deviation Low voltage QRS Abnormal ECG
== END 2017-05-19 17:10 | disposition home or self-care (01) ==
LOC: C.ER 14:19 → C.9E 17:27 → C.3T 18:07
PROVIDERS: ADMIT Internal Medicine; ATTEND Internal Medicine
DX: T18.128A Food in esophagus causing other injury, initial encounter (principal); D72.825 Bandemia; R13.10 Dysphagia, unspecified; E11.9 Type 2 diabetes mellitus without complications; Z87.891 Personal history of nicotine dependence; Z23 Encounter for immunization
CPT/HCPCS: 36415; 43247; 71010; 71260; 80053; 80061; 82948; 83036; 84484; 85025; 85027; 85610; 85730; 87040; 90732; 94640; 96360; 96372; 99284; C9113; G0009; G0378; J0696; J1610; J1650; J7040; J7042; J7120; Q9966